=== PATIENT | female | born 1935 | race Caucasian/White ===

== ENCOUNTER → 2016-11-04 | Outpatient (CLI) | payer MEDICARE, OTHER ==
[~2016-11-04] MED LIST: ALPRAZOLAM PO; ASPIRIN PO; CLARITIN10 MG PO; COLACE PO; FIORINAL W/CODE1 CAP PO; LEXAPRO PO; LIPITOR PO; LOTREL 5/20 MG1 CAP PO; NEXIUM PO; PERCOCET5/325 PO; SYNTHROID PO
--- NOTE | ~2016-11-04 | MY29 ---
[facility] A Service of [facility] RADIOLOGY TEXT RESULTS PATIENT: THANG GOMEZ LOCATION: [facility] : 39 UNIT #: [id number] AGE: [address]: Neville Aranda MD SEX: F ORDER DR: [id number] [place], [place] [address] [id number] MR#: [id number] Acc #: [id number] NAME: THANG GOMEZ : 1935 SEX: F STUDY DATE/TIME: 11/04/2016 11:33 UNIT: [facility] ROOM: STUDY DESCRIPTION: MY [facility] SCREENING W/ CAD BILAT Attending Physician: Neville Aranda M.D. Referring Physician: Neville Aranda M.D. Ordering Physician: Neville Aranda M.D. Primary Care Physician: Neville Aranda M.D. MEDICAL IMAGING REPORT This report is preliminary unless electronic signature is present EXAM Bilateral digital screening mammogram with CAD HISTORY Family history of breast cancer in an aunt. COMPARISON 10/23/2015, 10/06/2014 FINDINGS MLO and CC digital views of each breast were obtained. The exam was reviewed with an FDA-approved CAD device. There are scattered fibroglandular densities present. There are no masses or abnormal calcifications. IMPRESSION No change. No evidence of malignancy. Patient's over the age of 40 are entered into a reminder system with target due date for the next mammogram. A result letter will be sent to the patient. BIRADS: 1 Negative Dictated by... Brett Laboy M.D. THIS IS AN ELECTRONICALLY VERIFIED REPORT [facility] A Service of [facility] RADIOLOGY TEXT RESULTS PATIENT: THANG GOMEZ LOCATION: [facility] : 39 UNIT #: [id number] AGE: [address]: Neville Aranda MD SEX: F ORDER DR: Brett Laboy M.D. at 11/04/2016 3:56 PM FEL/to TD: 11/04/2016 15:32 JOB #: [id number] MEDICAL IMAGING REPORT Page 1 of 1 COPY
== END | disposition home or self-care (01) ==
LOC: CWCC 10-27 10:45
DX: Z12.31 Encounter for screening mammogram for malignant neoplasm of breast (principal); Z80.3 Family history of malignant neoplasm of breast
CPT/HCPCS: G0202